=== PATIENT | male | born 1995 | race Caucasian/White ===

== ENCOUNTER → 2017-05-26 | Outpatient (CLI) | payer BC, OTHER ==
--- NOTE | 2017-05-26 16:47 | DIAGNOSTIC IMAGING REPORT ---
LUMBAR SPINE 5 VIEWS HISTORY: LOWER BACK PAIN COMPARISON: None. FINDINGS: There is no fracture. No subluxation. Disc spaces are preserved. No evidence for spondylolysis. The sacrum is intact. IMPRESSION: Unremarkable lumbar spine by conventional radiographic technique. Electronically signed by: Federico Montoya M.D. 05/26/2017 4:46 PM Dictated Date/Time: 05/26/2017 4:40 PM
== END | disposition home or self-care (01) ==
LOC: C.RDSM 20:57
PROVIDERS: ATTEND Family Medicine
DX: M54.5 Low back pain (principal)

== ENCOUNTER → 2017-05-28 | Outpatient (CLI) | payer BC, OTHER ==
--- NOTE | 2017-05-28 11:51 | DIAGNOSTIC IMAGING REPORT ---
MRI OF THE LUMBAR SPINE WITHOUT CONTRAST CLINICAL HISTORY: Low back pain. COMPARISON STUDY: Lumbar spine radiographs May 26, 2017. TECHNIQUE: Utilizing a 1.5 Bertha magnet and dedicated coil, multiplanar, multiecho imaging of the lumbar spine was performed without IV contrast. FINDINGS: For purposes of numbering on this exam, the L5-S1 disc space is assigned to axial image 23 of 26. Alignment of the lumbar spine is anatomic. Vertebral body heights are maintained. There is no marrow replacement. Conus terminates at the mid L1 level. Paravertebral soft tissues are unremarkable. There is no intracanalicular mass or fluid collection. L1-2: There is minimal disc space narrowing. The central canal and neural foramen are patent. L2-3: The central canal and neural foramen are patent. L3-4: The central canal and neural foramen are patent. L4-5: The central canal and neural foramen are patent. There is minimal disc bulge. L5-S1: The central canal neural foramen are patent. There is minimal disc space narrowing. IMPRESSION: Patent central canal and neural foramen. Minimal multilevel degenerative changes of lumbar spine with no disc herniation. Essentially normal MRI of the lumbar spine. Electronically signed by: Wayne Melchor M.D. 05/28/2017 11:49 AM Dictated Date/Time: 05/28/2017 11:44 AM
== END | disposition home or self-care (01) ==
LOC: C.MRI 10:47
PROVIDERS: ATTEND Family Medicine
DX: M54.5 Low back pain (principal)

== ENCOUNTER → 2017-08-01 | Outpatient (CLI) | payer BC, OTHER ==
--- NOTE | 2017-08-01 13:56 | DIAGNOSTIC IMAGING REPORT ---
L EXTREMITY NONVASCULAR LIMITED CLINICAL HISTORY: 22 years-old Male presenting with LT FOREARM MASS. TECHNIQUE: Real-time grayscale Doppler ultrasound imaging of the left forearm was performed for a focused evaluation at the site of clinical concern. Color Doppler ultrasound imaging was also performed. COMPARISON: None. FINDINGS: At the site of clinical interest in the medial aspect of the left forearm, a focal anechoic fluid collection measuring 11 x 4 x 11 mm is noted. This is avascular. This is centered in the subcutaneous fat immediately subjacent to and intimately associated with the cutis. No surrounding hyperemia. No extension to the subjacent muscle. Otherwise normal sonographic appearance of surrounding structures. IMPRESSION: 1. Nonspecific 11 mm fluid collection at the site of clinical interest in the subcutaneous fat intimately associated with the cutis. This is could represent an abscess or sebaceous cyst among other etiologies. Electronically signed by: Collins Perez M.D. 08/01/2017 1:55 PM Dictated Date/Time: 08/01/2017 1:53 PM
== END | disposition home or self-care (01) ==
LOC: C.ULTR 07:22
PROVIDERS: ATTEND Family Medicine
DX: R22.32 Localized swelling, mass and lump, left upper limb (principal)